=== PATIENT | female | born 2005 | race Caucasian/White ===

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

== ENCOUNTER 2024-08-20 18:15 | Emergency (ER) | payer MEDICAID, OTHER ==
[~2024-08-20] VITALS: Ht 160 cm; Wt 56.7 kg
[2024-08-20 18:40] VITALS: BP 124/84; TEMP 98.6
[2024-08-20] MEDS ORDERED: IBUP-1953 PO (19:17)
[2024-08-20] MEDS ORDERED: AMOX-430 PO (19:17)
[2024-08-20] MEDS ORDERED: IBUPROFEN 600 MG TABLET ONE (19:30)
[2024-08-20] MEDS ORDERED: TDAP [DIPH/PERTUSSIS/TET] 0.5 ML VIAL IM ONE (19:30)
[2024-08-20] MEDS: IBUPROFEN 600 MG TABLET PO ONE (19:45)
[2024-08-20] MEDS: TDAP [DIPH/PERTUSSIS/TET] 0.5 ML VIAL IM ONE (19:45)
[2024-08-20 19:54] VITALS: O2SAT 100
== END 2024-08-20 19:55 | disposition home or self-care (01) ==
LOC: ER 18:15
DX: S61.011A Laceration without foreign body of right thumb without damage to nail, initial encounter (principal); W54.0XXA Bitten by dog, initial encounter; Y93.89 Activity, other specified; Y92.098 Other place in other non-institutional residence as the place of occurrence of the external cause; Y99.8 Other external cause status
CPT/HCPCS: 90715